=== PATIENT | female | born 1975 | race Caucasian/White ===

== ENCOUNTER 2021-06-01 17:37 | Emergency (ER) | payer OTHER ==
[~2021-06-01] VITALS: Ht 160 cm; Wt 90.4 kg
[2021-06-01] MEDS ORDERED: LACTATED RINGERS 1,000 ML IV STA ×2 (18:00→18:35)
--- NOTE | 2021-06-01 18:00 | ED GI ---
General Chief Complaint: Abdominal/GI Problems Stated Complaint: DIARRHEA History of Present Illness Date Seen by Provider: Jun 01, 2021 Time Seen by Provider: 17:54 Initial Comments 45-year-old female presents with some mild abdominal cramps and diarrhea. Diarrhea started about 2 days ago. She feels like may she is a little dry dehydrated. She has a little malaise and some nausea but no vomiting. No other sick contacts. 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 Patient with no abdominal pain, mild chills. She has taken 2 doses of Imodium today which seemed to help her symptoms Allergies and Home Medications Allergies Coded Allergies: No Known Drug Allergies (Unverified , 06/01/21) Patient Home Medication List Home Medication List Reviewed: Yes Review of Systems Review of Systems Constitutional: chills; No dizziness; malaise; No weakness Respiratory: No Symptoms Reported Cardiovascular: No Symptoms Reported Gastrointestinal: Denies Abdomen Distended, Denies Abdominal Pain; Diarrhea, Nausea; Denies Vomiting Genitourinary: No Symptoms Reported Musculoskeletal: no symptoms reported Skin: no symptoms reported Psychiatric/Neurological: No Symptoms Reported Endocrine: No Symptoms Reported Hematologic/Lymphatic: No Symptoms Reported Physical Exam Vital Signs Vital Signs - First Documented 06/01/21 17:45 Temp 38.1 Pulse 130 Resp 16 B/P (MAP) 122/75 (91) Pulse Ox 99 O2 Delivery Room Air Capillary Refill : Height/Weight/BMI Height: '" Weight: lbs. oz. kg; BMI Method: General Appearance: WD/WN, no apparent distress Respiratory: lungs clear, normal breath sounds Cardiovascular: normal peripheral pulses, regular rate, rhythm Gastrointestinal: non tender, soft Neurologic/Psychiatric: alert, normal mood/affect, oriented x 3 Skin: normal color, warm/dry Progress/Results/Core Measures Results/Orders Lab Results Laboratory Tests Test 06/01/21 18:01 Range/Units White Blood Count 10.5 4.3-11.0 10^3/uL Red Blood Count 4.85 3.80-5.11 10^6/uL Hemoglobin 14.7 11.5-16.0 g/dL Hematocrit 43 35-52 % Mean Corpuscular Volume 89 80-99 fL Mean Corpuscular Hemoglobin 30 25-34 pg Mean Corpuscular Hemoglobin Concent 34 32-36 g/dL Red Cell Distribution Width 13.3 10.0-14.5 % Platelet Count 249 130-400 10^3/uL Mean Platelet Volume 10.0 9.0-12.2 fL Immature Granulocyte % (Auto) 0 % Neutrophils (%) (Auto) 85 H 42-75 % Lymphocytes (%) (Auto) 9 L 12-44 % Monocytes (%) (Auto) 6 0-12 % Eosinophils (%) (Auto) 0 0-10 % Basophils (%) (Auto) 0 0-10 % Neutrophils # (Auto) 9.0 H 1.8-7.8 X 10^3 Lymphocytes # (Auto) 0.9 L 1.0-4.0 X 10^3 Monocytes # (Auto) 0.6 0.0-1.0 X 10^3 Eosinophils # (Auto) 0.0 0.0-0.3 10^3/uL Basophils # (Auto) 0.0 0.0-0.1 10^3/uL Immature Granulocyte # (Auto) 0.0 0.0-0.1 10^3/uL Sodium Level 131 L 135-145 MMOL/L Potassium Level 3.2 L 3.6-5.0 MMOL/L Chloride Level 95 L 98-107 MMOL/L Carbon Dioxide Level 21 21-32 MMOL/L Anion Gap 15 H 5-14 MMOL/L Blood Urea Nitrogen 5 L 7-18 MG/DL Creatinine 0.75 0.60-1.30 MG/DL Estimat Glomerular Filtration Rate 84 BUN/Creatinine Ratio 7 Glucose Level 106 H 70-105 MG/DL Calcium Level 9.1 8.5-10.1 MG/DL Corrected Calcium 9.2 8.5-10.1 MG/DL Total Bilirubin 0.4 0.1-1.0 MG/DL Aspartate Amino Transf (AST/SGOT) 18 5-34 U/L Alanine Aminotransferase (ALT/SGPT) 17 0-55 U/L Alkaline Phosphatase 84 40-136 U/L Total Protein 7.7 6.4-8.2 GM/DL Albumin 3.9 3.2-4.5 GM/DL Lipase 9 8-78 U/L My Orders Orders - PURCELL,KO L DO Cbc With Automated Diff (06/01/21 18:00) Comprehensive Metabolic Panel (06/01/21 18:00) Lipase (06/01/21 18:00) Abdomen Flat & Upright/Decub (06/01/21 18:00) Lactated Ringers (Lr 1000 Ml Iv Solution (06/01/21 18:00) Ed Iv/Invasive Line Start (06/01/21 18:00) Lactated Ringers (Lr 1000 Ml Iv Solution (06/01/21 18:35) Vital Signs/I&O 06/01/21 17:45 Temp 38.1 Pulse 130 Resp 16 B/P (MAP) 122/75 (91) Pulse Ox 99 O2 Delivery Room Air Progress Progress Note : Progress Note X-ray shows nonspecific early ileus versus small bowel obstruction, patient does have low sodium and potassium consistent with some probably dehydration and electrolyte changes from her diarrhea over the last couple days. Patient does not have any vomiting or abdominal pain. I discussed x-ray findings with patient along with further imaging. At this time, I feel that is likely an ileus as she also does. We will forego a CT scan at this time. She will receive 2 L LR. If her symptoms worsen she will return to the ER for further evaluation including CAT scan. I did discuss with her to do clear liquids and advance as tolerated. She should also return the ER if she starts vomiting which was discussed. Along with any worsening abdominal Diagnostic Imaging Diagonstic Imaging: Xray Plain Films/CT/US/NM/MRI: abdomen Comments Date of Exam:06/01/21 ABDOMEN FLAT & UPRIGHT/DECUB INDICATION: Diarrhea, pain. FINDINGS: There is no free intraperitoneal air. The lung bases are clear. There is some scattered air-fluid levels associated with mildly distended mid abdominal small bowel which may be early or partial obstruction versus ileus. No abnormal colonic distention. IMPRESSION: Some midline abdominal small bowel air-fluid levels and mild small bowel distention could be early bowel obstruction or nonspecific ileus. No colonic pathology. No free air or pneumatosis. Departure Impression Primary Impression: Ileus, unspecified Additional Impression: Diarrhea Qualified Codes: R19.7 - Diarrhea, unspecified Disposition: 01 HOME, SELF-CARE Condition: Stable Departure-Patient Inst. Referrals: REGAN SEARS (PCP/Family) Primary Care Physician Patient Instructions: Diarrhea, Adult ED Add. Discharge Instructions: Clear liquid diet for the next 24 hours then advance as tolerated Return to the ER if you develop significantly worsening abdominal pain, vomiting or any other concerns. Follow-up with your primary care provider if you you are still experiencing diarrhea towards the end of the week. All discharge instructions reviewed with patient and/or family. Voiced understanding. KO PURCELL DO Jun 01, 2021 18:00
[2021-06-01 18:07] LABS: BASOPHILS % (AUTO) 0 % (0-10); EOSINOPHILS % (AUTO) 0 % (0-10); HEMATOCRIT 43 % (35-52); HEMOGLOBIN 14.7 g/dL (11.5-16.0); LYMPHOCYTES # (AUTO) 0.9 X 10^3 (1.0-4.0); LYMPHOCYTES % (AUTO) 9 % (12-44); MEAN CORPUSCULAR HEMOGLOBIN 30 pg (25-34); MEAN CORPUSCULAR HGB CONC 34 g/dL (32-36); MEAN CORPUSCULAR VOLUME 89 fL (80-99); MONOCYTES # (AUTO) 0.6 X 10^3 (0.0-1.0); MONOCYTES % (AUTO) 6 % (0-12); NEUTROPHILS % (AUTO) 85 % (42-75); PLATELET COUNT 249 10^3/uL (130-400); WHITE BLOOD COUNT 10.5 10^3/uL (4.3-11.0)
[2021-06-01 18:26] LABS: ALBUMIN 3.9 GM/DL (3.2-4.5); BILIRUBIN,TOTAL 0.4 MG/DL (0.1-1.0); CALCIUM 9.1 MG/DL (8.5-10.1); CREATININE SERUM 0.75 MG/DL (0.60-1.30); POTASSIUM 3.2 MMOL/L (3.6-5.0); TOTAL PROTEIN 7.7 GM/DL (6.4-8.2)
--- NOTE | 2021-06-01 18:40 | Diagnostic Imaging Report ---
INDICATION: Diarrhea, pain. FINDINGS: There is no free intraperitoneal air. The lung bases are clear. There is some scattered air-fluid levels associated with mildly distended mid abdominal small bowel which may be early or partial obstruction versus ileus. No abnormal colonic distention. IMPRESSION: Some midline abdominal small bowel air-fluid levels and mild small bowel distention could be early bowel obstruction or nonspecific ileus. No colonic pathology. No free air or pneumatosis. Dictated by: Dictated on workstation # [id number]
[2021-06-01 20:26] VITALS: BP 112/76
== END 2021-06-01 20:35 | disposition home or self-care (01) ==
LOC: ER FS 17:39
DX: K56.7 Ileus, unspecified (principal); R19.7 Diarrhea, unspecified
CPT/HCPCS: 36415; 74019; 80053; 83690; 85025